=== PATIENT | female | born 1970 | race Caucasian/White ===

== ENCOUNTER 2016-05-11 12:11 | Emergency (ER) | payer BC ==
[~2016-05-11] VITALS: Ht 162.6 cm; Wt 150.0 kg
[2016-05-11 12:14] VITALS: TEMP 37.2; Ht 162.6 cm; Wt 150.0 kg
[2016-05-11] MEDS ORDERED: LSN/2025 PO (13:03)
[2016-05-11] MEDS ORDERED: ATORVASTATIN PO (13:03)
--- NOTE | 2016-05-11 13:09 | DIAGNOSTIC IMAGING REPORT ---
LEFT KNEE 3 VIEWS CLINICAL HISTORY: Left knee pain status post trauma. Laceration. COMPARISON: None. DISCUSSION: No fractures or dislocations are visualized. There is a prepatellar anterior soft tissue laceration. The soft tissue defect extends to near the level the bone. No foreign bodies are visualized. IMPRESSION: 1. Prominent prepatellar soft tissue laceration 2. No fractures identified Electronically signed by: Waldo Sanz M.D. 05/11/2016 1:08 PM Dictated Date/Time: 05/11/2016 12:57 PM
[2016-05-11] MEDS ORDERED: XYLOCAINE 1%/SOD BICARB 20 ML VIAL INFIL ONE ×2 (13:33→13:45)
[2016-05-11] MEDS ORDERED: CEPH500C2 PO (14:51)
[2016-05-11] MEDS ORDERED: HYDR-5688 PO (14:51)
[2016-05-11 15:10] VITALS: BP 158/99; PULSE 84; O2SAT 97
--- NOTE | 2016-05-12 10:43 | EMERGENCY ROOM VISIT NOTE ---
ED Visit Note First contact with patient: 13:16 Chief Complaint: Left knee laceration. History of Present Illness: Ms. Wick is a 46-year-old white female who ambulates into the ED accompanied by her mother complaining of a left anterior knee laceration. Patient reports approximately an hour before she arrived in the emergency department she was walking her dogs. She reports she was making a turn that was going downhill, slipped and fell onto her left knee and sustained a large laceration. She reports she did not injure any other body parts first strike her head. Since that time she has been having left knee pain. Currently she describes her pain as a burning sensation. She rates her discomfort as 3/10. The pain is nonradiating. The pain worsens with palpation of her laceration. She has not identified any alleviating factors related to the pain. She has not taken a medications for pain prior to arrival at the hospital. She denies any associated symptoms including hip pain, thigh pain, lower leg pain, foot pain, leg weakness/numbness/tingling. Review of Systems: As noted above in history of present illness. Past Medical History: Hypertension, status post hysterectomy. Current Medications: Lisinopril, hydrochlorothiazide. Allergies to Medications: Patient denies. Social History: Patient is currently employed; she feels safe in her home environment; she denies tobacco and alcohol use. Tetanus Immunization Status: Patient reports up-to-date. Physical Examination: Vital Signs: Date Time Temp Pulse Resp B/P Pulse Ox O2 Delivery O2 Flow Rate FiO2 05/11/16 15:10 84 18 158/99 97 05/11/16 12:14 37.2 96 18 176/109 95 Room Air GENERAL: 46-year-old female in mild distress due to pain, nontoxic-appearing, afebrile and hemodynamically stable. NEUROLOGICAL: Awake, alert and oriented to person, place and time. Answering questions appropriately and following commands. Normal gait. Good hand eye coordination. No focal motor or sensory deficits. SKIN: Warm, dry and pink. Left Knee: Over the anterior aspect of the knee just inferior to the patella patient has a large gaping laceration measuring 7.5 cm. No active bleeding. On evaluation there does not appear to be any significant disruption of the underlying structures including the tibial tendon and or involvement of the patella. HEENT: Atraumatic and normocephalic. LEFT LOWER EXTREMITY: No gross bony deformity. No shortening or malrotation. No tenderness in the hip, thigh, lower leg or ankle. Laceration as noted above. No laxity of the collateral or cruciate ligaments. Because of her body habitus and injury and did not evaluate the meniscus. She had full range of motion in flexion and extension of the knee against resistance. Throughout the lower leg the skin was warm and pink and capillary refill is brisk. Distal pulses and sensations were intact. ED Course: Patient is assessed as noted above. Left Knee X-Rays: Were read by myself and the radiologist showing no acute fractures or foreign bodies. Wound Repair: Complexity: Intermediate. Reason: Multilayer closure. Verbal consent was obtained after the risks and benefits were explained. The skin was prepped with betadine and a sterile field set. Wound edges of the wound was anesthetized with 10.3 ml buffered 1% lidocaine. The wound was explored for a few small pieces of particular matter were removed. Copious irrigation was performed using sterile saline. With direct pressure the bleeding subsided. Debridement was not performed. The subcuticular level of the laceration was closed with 5-0 Vicryl with 4 simple interrupted sutures. The cutaneous level of the laceration was closed with 4-0 Ethilon and 14 simple interrupted sutures. Hemostasis and excellent approximation was achieved. Antibacterial ointment and a sterile dressing applied. No complications and the patient tolerated the procedure well. Patient was placed in a knee immobilizer for stability of the laceration. Patient was educated about tonight's findings and instructed on she treatment plan; she verbalizes understanding and agreement with this plan. Clinical Impression: Laceration of the left knee. Disposition: Patient discharged home in stable condition; prior to departure he was reassessed and subjectively reported she was feeling better and rated her discomfort 3/10. Plan: Comfort measures, wound care and signs of infection were discussed with the patient. Patient was prescribed [place] for pain; appropriate narcotic per cautions were discussed with the patient. Patient was prescribed Keflex for antibiotic prophylaxis; 500 mg 4 times a day for 7 days. Patient was encouraged to use the knee immobilizer for at least 3-4 days or until pain free and to avoid quick flexion of the knee. Patient was encouraged to follow-up with personal physician or return emergency department in days and/or signs of infection or any new/concerning symptoms.
== END 2016-05-11 15:14 | disposition home or self-care (01) ==
LOC: C.EDB 12:13 → C.EDD 15:14
DX: S81.012A Laceration without foreign body, left knee, initial encounter (principal); W01.0XXA Fall on same level from slipping, tripping and stumbling without subsequent striking against object, initial encounter; Y92.89 Other specified places as the place of occurrence of the external cause; Y93.K1 Activity, walking an animal; I10 Essential (primary) hypertension; Z79.899 Other long term (current) drug therapy